=== PATIENT | female | born 1950 | race Caucasian/White ===

== ENCOUNTER 2017-09-26 16:15 | Emergency (ER) | payer MEDICARE, MEDICAID ==
--- NOTE | 2017-09-26 16:39 | ED Physician Chart ---
ED Chief Complaint/HPI - Patient Information Date Seen:: 09/26/17 Time Seen:: 16:34 Chief Complaint:: BLE skin lesions History of Present Illness:: 66 yo female presented with erythematous macular spots on bilateral anterior tibial areas this morning. No itchiness, no pain. Patient started to take aspirin 81mg early July 2017. Allergies:: Allergies Allergy/AdvReac Type Severity Reaction Status Date / Time lithium Allergy Verified 09/26/17 16:24 pollen extracts Allergy Verified 09/26/17 16:23 dust Allergy Uncoded 09/26/17 16:24 Vitals:: Vital Signs - 8 hr 09/26/17 16:24 Temp 98.2 F HR 74 RR 18 BP 118/68 O2 Sat % 95 ED Review of Systems - Review of Systems General/Constitutional: No fever, No weakness Skin: Skin lesions Head: No headache Eyes: No pain ENT: No earache Neck: No neck pain Cardio Vascular: No chest pain Pulmonary: No SOB GI: No nausea, No vomiting Musculoskeletal: Bone or joint pain Neurological: No focal symptoms ED Past Medical History - Past Medical History Past Medical History: HTN, Arthritis (right knee DJD), Other (glaucoma b/l, chronic low back pain) Social History: Non Smoker, No Alcohol, No Drug Use Surgical History: other (Right knee fracture, left tibia fracture) Psychiatricy History: Bipolar (type II) ED Physical Exam - Physical Examination General/Constitutional: Awake Head: Atraumatic Eyes: PERRL Other Skin comments:: B/l tibial pinpoint-sized reddish-purple, non-palpable, non-kiran, non-tender petechiae Neck: No nuchal rigidity Respiratory: No Wheeze/Rhonchi/Rales Cardio Vascular: RRR, No murmur, gallop, rubs, NL S1 S2 GI: No tenderness/rebounding/guarding Extremities: normal strength in all extremities Neuro/Psych: No focal deficits ED Assessment - Assessment General Assessment: Petechiae, likely secondary to recent aspirin intake during past 2 months Assessment/Comments:: CBC, CMP, UA PT/PTT Trop I D/c home Stop Aspirin until revisit PCP on 10/13/17 ED Septic Shock - . Is Septic Shock (SBP<90, OR Lactate>4 mmol\L) present?: No - <6hrs of presentation: Vital Signs: Vital Signs - 8 hr 09/26/17 16:24 Temp 98.2 F HR 74 RR 18 BP 118/68 O2 Sat % 95 ED Reassessment (Disposition) - Reassessment Reassessment Condition:: Unchanged - Patient Disposition Discharge/Transfer:: Home
[2017-09-26 17:05] LABS: % BASOPHILS 0.6 % (0.0-2.0); % EOSINOPHILS 3.3 % (0.0-5.0); % LYMPHOCYTES 25.6 % (20.0-50.0); % MONOCYTES 11.3 % (2.0-10.0); % NEUTROPHILS 59.2 % (40.0-80.0); EOSINOPHILE ABSOLUTE 0.2 Th/cmm (0.1-0.4); HEMATOCRIT 42.3 % (41.0-60); HEMOGLOBIN 14.2 gm/dL (12-16); LYMPHOCYTE ABSOLUTE 1.2 Th/cmm (1.5-3.0); MEAN CELL VOLUME 90.5 fl (81-100); MEAN CORPUSCULAR HEMOGLOBIN 30.4 pg (27.0-31.0); MEAN CORPUSCULAR HGB CONC 33.6 pg (28.0-36.0); MONOCYTE ABSOLUTE 0.5 Th/cmm (0.3-1.0); NEUTROPHILE ABSOLUTE 2.7 Th/cmm (1.8-8.0); PLATELET COUNT 165 Th/cmm (150-400); RED BLOOD COUNT 4.67 Mil/cmm (3.80-5.20); RED CELL DISTRIBUTION WIDTH 13.5 % (11.5-20.0); WHITE BLOOD COUNT 4.6 Th/cmm (4.8-10.8)
[2017-09-26 17:15] LABS: INR 1.07 (0.5-1.4); PROTHROMBIN TIME (TEST) 11.1 SECONDS (9.5-11.5)
[2017-09-26 17:19] LABS: ALB/GLOB RATIO 1.5 (1.0-1.8); ALBUMIN 3.9 gm/dL (3.7-5.3); ALKALINE PHOSPHATASE 37 U/L (34-104); ANION GAP 8.1 (7.0-16.0); BILIRUBIN,TOTAL 0.4 mg/dL (0.3-1.0); BUN - UREA NITROGEN 24 mg/dL (7-25); CALCIUM SERUM 9.4 mg/dL (8.6-10.3); CHLORIDE 103 mEq/L (98-107); CREATININE - SERUM 0.9 mg/dL (0.6-1.2); GFR AFRICAN-AMERICAN > 60.0 ml/min (>90); GFR NON AFRICAN-AMERICAN > 60.0 ml/min; GLUCOSE 84 mg/dL (70-105); POTASSIUM SERUM 4.1 mEq/L (3.5-5.1); SGOT 13 U/L (13-39); SGPT/ALT 12 U/L (7-52); SODIUM SERUM 138 mEq/L (136-145); TOTAL PROTEIN,SERUM 6.5 gm/dL (6.0-8.3)
== END 2017-09-26 17:54 | disposition home or self-care (01) ==
LOC: ER 16:15
DX: R23.3 Spontaneous ecchymoses (principal); I10 Essential (primary) hypertension; F31.81 Bipolar II disorder; Z91.09 Other allergy status, other than to drugs and biological substances
CPT/HCPCS: 36415-UA; 80053-TC; 84484-TC; 85025-TC; 85610-TC; Z7502

== ENCOUNTER 2018-10-30 14:19 | Emergency (ER) | payer MEDICARE, BC | END 2018-10-30 15:09 | disposition left against medical advice (07) | LOC: ER 14:19 | DX: M25.572 Pain in left ankle and joints of left foot (principal); Z53.21 Procedure and treatment not carried out due to patient leaving prior to being seen by health care provider ==